=== PATIENT | female | born 1990 | race Caucasian/White ===

== ENCOUNTER 2021-01-17 05:51 | Inpatient (IN) | payer BC ==
[~2021-01-17 05:51] MED LIST: Citric Acid/Sodium Citrate Solution 30 ML Cup PO ONE; Gentamicin 400 MG in Sodium Chloride 0.9% 100 ML IV ONE; Sodium Chloride 0.9% 10 ML Syringe FLUSH PRN; Tranexamic Acid 1,000 MG in Sodium Chloride 0.9% 100 ML IV PRN
[2021-01-17] MEDS ORDERED: Lactated Ringers 1,000 ML IV SCH (06:00)
[2021-01-17] MEDS ORDERED: Oxytocin/Normal Saline 30 UNIT/500 ML BAG IV SCH (06:00)
[2021-01-17] MEDS ORDERED: Oxytocin/Normal Saline 60 UNIT/1,000 ML BAG ONE (06:28)
[2021-01-17] MEDS: Lactated Ringers 1,000 ML IV SCH ×4 (06:30→16:09)
[2021-01-17] MEDS ORDERED: Gentamicin 40 MG/ML 2 ML Vial ONE ×2 (07:04→07:29)
[2021-01-17] MEDS ORDERED: Sodium Chloride 0.9% 100 ML ONE (07:29)
[2021-01-17] MEDS ORDERED: Ondansetron 4 MG/2 ML SDV IVPUSH PRN (07:38)
[2021-01-17] MEDS ORDERED: Methylergonovine 0.2 MG/1 ML Amp IM PRN (07:38)
[2021-01-17] MEDS ORDERED: Tranexamic Acid 1,000 MG in Sodium Chloride 0.9% 100 ML IV PRN (07:38)
[2021-01-17] MEDS ORDERED: Acetaminophen 325 MG Tab PO PRN (07:38)
[2021-01-17] MEDS ORDERED: diphenhydrAMINE 50 MG/ML SDV IVPUSH PRN (07:38)
[2021-01-17] MEDS ORDERED: Misoprostol 400 MCG (4 X 100 MCG TAB) RECTAL PRN (07:38)
[2021-01-17] MEDS ORDERED: Acetaminophen/oxyCODONE 325-5 MG Tab PO PRN ×2 (07:38)
[2021-01-17] MEDS ORDERED: Carboprost Tromethamine 250 MCG/1 ML Amp IM PRN (07:38)
[2021-01-17] MEDS ORDERED: Naloxone 2 MG/2 ML Syringe IVPUSH PRN (07:38)
[2021-01-17] MEDS ORDERED: ePHEDrine 50 MG/ML SDV IVPUSH PRN (07:38)
[2021-01-17] MEDS ORDERED: Ketorolac 30 MG/ML SDV IVPUSH SCH (08:00)
[2021-01-17] MEDS ORDERED: Gentamicin 400 MG in Sodium Chloride 0.9% 100 ML IV ONE (08:30)
[2021-01-17] MEDS: Simethicone 80 MG Tab.Chew PO SCH ×4 (09:52→20:35)
[2021-01-17] MEDS: Prenatal Multivitamin with Calcium/Folic Acid/Iron Tab PO SCH (09:52)
--- NOTE | 2021-01-17 10:10 | OR ---
DATE: 01/17/2021 PROCEDURE PERFORMED: Repeat low transverse section. INDICATION FOR PROCEDURE: Elective repeat section at term due to history of 2 prior sections and history of pelvic floor trauma. SURGEON: Bertha Blackburn MD MACHINE DRILLER: Drew Darling MD ANESTHESIA: Spinal. CONSENT: Discussed with the patient indications, risks, benefits, and alternatives of repeat low transverse section including risk of bleeding to the point of requiring a blood transfusion and its inherent risk, risk of injury to any internal organs and adjacent structures including, but not limited to, large blood vessels, nerves, veins, uterus, intestines, fallopian tubes, ovaries, bladder, and even the baby, potential for complications for mother and/or baby that would require transfer to a tertiary center for definitive care. Her questions were answered and appropriate consent forms are signed and in the chart. PREPROCEDURE DIAGNOSES: 1. 39-1/7 weeks' intrauterine based on 12-week ultrasound. 2. 4, para 2-0-1-2. 3. History of section x2. 4. History of pelvic floor trauma. 5. Posttraumatic stress disorder. 6. History of spontaneous x1. 7. Anemia of . 8. Blood type A negative, rubella immune, group B Streptococcus negative. 9. Penicillin allergy. Planned prophylaxis was gentamicin. POSTPROCEDURE DIAGNOSES: 1. 39-1/7 weeks' intrauterine based on 12-week ultrasound. 2. 4, now para 3-0-1-3. 3. History of section x2. 4. History of pelvic floor trauma. 5. Posttraumatic stress disorder. 6. History of spontaneous x1. 7. Anemia of . 8. Blood type A negative, rubella immune, group B Streptococcus negative. 9. Penicillin allergy. Planned prophylaxis was gentamicin. 10.Status post repeat low transverse section without complications. DETAILS: The patient brought to the operating room and spinal anesthesia obtained. Bello indwelling catheter placed with the patient in dorsal supine position with leftward tilt. Abdomen prepped in usual fashion and sterile drapes applied. The patient's skin was tested and skin incision was made at 8:02 and carried down to the underlying fascia using cautery and finger dissection. Fascia incised in the midline with cautery and extended bilaterally with cautery and finger dissection. Superior fascial edge grasped with Keely's, tented up, and rectus muscles dissected off with cautery. Inferior fascial edge treated in similar fashion. Rectus muscles in the midline with blunt finger dissection, and peritoneal cavity entered by finger dissection. Carter retractor was then placed, and uterine incision made at 8:05 a.m. with scalpel and extended using Mena method. Baby was noted to be OP position, delivered at 8:05 a.m. Nose and mouth were bulb suctioned. Three- vessel umbilical cord was doubly clamped and cut. Baby taken to the warmer for further evaluation. Placenta was delivered by gentle cord traction and concomitant uterine massage. Uterus cleared of all clots and debris with dry lap sponge, and hysterotomy site closed with a running lock stitch of 0 Vicryl in the usual fashion. There was a small amount of bleeding noted, and a second imbricating layer was placed. Uterine segment was noted to be quite thin, so I am hoping that this second layer would also cordwood cutter helper in safe future pregnancies. Otherwise, I would recommend delivery at 38 weeks to 39 weeks. Carter was then removed, and pericolic gutters cleared of all clots and debris. Hysterotomy site reinspected and remained hemostatic. Rectus muscles brought together in the midline with a single loose [id number] suture. This layer was irrigated and fascia closed with a running stitch of 0 looped PDS in the usual fashion. Subcutaneous tissues irrigated and cleared of any debris. Skin was closed with a subcuticular stitch of 4-0 Monocryl and procedure ended at 8:30 a.m. COMPLICATIONS: None. ESTIMATED BLOOD LOSS: 100 mL. IV FLUIDS: 1. 1500 mL of crystalloid,300 mL with Pitocin. 2. Urine output 350 mL of clear yellow. DISPOSITION: Baby to go to the normal nursery. Mother to stay in the postanesthesia care unit until stabilized to return to the floor. FINDINGS: Viable female , weight 3450 g, 7 pounds 10 ounces, score of 7 and 9. Thin lower uterine segment, not a window. [facility] [facility] /[id number] [facility]ITAL[facility]
[2021-01-17] MEDS ORDERED: Oxytocin/Normal Saline 30 UNIT/500 ML BAG IV ONE (10:25)
[2021-01-17] MEDS ORDERED: Morphine PF 1 MG/ML Amp ONE (11:22)
[2021-01-17] MEDS ORDERED: Lactated Ringers 1,000 ML IV ONE (11:22)
[2021-01-17] MEDS ORDERED: Dexamethasone 4 MG/ML SDV IV ONE (11:22)
[2021-01-17] MEDS ORDERED: Sodium Bicarbonate 4.2% 2.5 MEQ/5 ML SDV ONE (11:22)
[2021-01-17] MEDS ORDERED: Ondansetron 4 MG/2 ML SDV IV ONE (11:22)
[2021-01-17] MEDS ORDERED: Ketorolac 30 MG/ML SDV IVPUSH ONE (11:22)
[2021-01-17] MEDS: Ketorolac 30 MG/ML SDV IVPUSH SCH ×2 (14:57→20:34)
[2021-01-17] MEDS: Docusate Sodium 100 MG Cap PO PRN (20:35)
[2021-01-18] MEDS: Ketorolac 30 MG/ML SDV IVPUSH SCH (02:28)
[2021-01-18] MEDS: Prenatal Multivitamin with Calcium/Folic Acid/Iron Tab PO SCH (08:15)
[2021-01-18] MEDS: Simethicone 80 MG Tab.Chew PO SCH ×4 (08:15→21:29)
[2021-01-18] MEDS: Docusate Sodium 100 MG Cap PO PRN ×2 (08:16→21:29)
--- NOTE | 2021-01-18 10:20 | PN ---
DATE: 01/18/2021 SUBJECTIVE: Postoperative day #1 elective repeat section without complications. The patient is doing well. She has ambulated. She has her Bello catheter out. Passing flatus. No bowel movement as of yet. She is tolerating a regular diet. No chest pain. No shortness of breath. Lochia has been minimal and overall doing well. Baby's blood type is O positive and her RhoGAM has been ordered and she knows she needs to get that, still anticipating discharge home tomorrow as long as everything is going well. OBJECTIVE: Vital Signs: Temperature is 97.4, pulse 72, blood pressure 99/56, respiratory rate of 16. Heart: Regular without murmur. Lungs: Clear to auscultation bilaterally. Abdomen: Mildly distended. Positive bowel sounds. No tenderness. Dressing is clean, dry, and intact. Extremities: No edema, erythema, or tenderness. LABORATORY DATA: Hemoglobin 12.0, down to 9.5, platelets 304, down to 285. ASSESSMENT: 1. Postoperative day 1, status post elective repeat section. 2. Anemia of . 3. Blood type A negative, baby is O positive, and RhoGAM has been ordered. 4. 4, now para 3-0-1-3. 5. History of pelvic floor trauma. 6. Posttraumatic stress disorder. 7. History of miscarriage x1. PLAN: Continue routine postoperative and postdelivery cares. Anticipating discharge home tomorrow as long as everything goes well. Discussed with her that she has had some mild anemia, worse after surgery, but also anticipate a lot of this is hemodilution related. The patient's questions have been answered. [facility] /[id number]
[2021-01-18] MEDS: Ibuprofen 800 MG Tab PO PRN (16:08)
[2021-01-19] MEDS: Ibuprofen 800 MG Tab PO PRN ×3 (00:07→17:51)
[2021-01-19] MEDS: Prenatal Multivitamin with Calcium/Folic Acid/Iron Tab PO SCH (08:55)
[2021-01-19] MEDS: Simethicone 80 MG Tab.Chew PO SCH ×3 (08:55→17:52)
[2021-01-19] MEDS: Docusate Sodium 100 MG Cap PO PRN (08:55)
[2021-01-19 17:21] VITALS: BP 116/64; PULSE 64
--- NOTE | 2021-01-22 06:49 | DISCH ---
ADMITTING DIAGNOSES: 1. 39 and 1/7 weeks intrauterine based on 12 weeks ultrasound. 2. 4, para 2-0-1-2. 3. History of x2. 4. History of pelvic trauma. 5. Post-traumatic stress disorder. 6. Blood type A negative, rubella immune, group B Strep negative. 7. History of spontaneous x1. 8. Anemia of . DISCHARGE DIAGNOSES: 1. 39 and 1/7 weeks intrauterine based on 12 weeks ultrasound. 2. 4, now para 3-0-1-3. 3. History of x2. 4. History of pelvic trauma. 5. Post-traumatic stress disorder. 6. Blood type A negative, rubella immune, group B Strep negative. 7. History of spontaneous x1. 8. Anemia of . 9. Thin lower uterine segment. 10.Status post repeat low transverse section without complications. 11.RhoGAM administration on 01/18/2021. BRIEF HISTORY: A 30-year-old female with the above-listed diagnoses, presented to the hospital for planned elective section at term. Please see admission history and physical for details. Surgical procedure was carried out without incident and there was actually only estimated blood loss of around 100 mL, and there were no complications with the surgery itself. She was noted to have a thinning of lower uterine segment, but not uterine window, and I have advised her that next delivery should be between 38 and 39 weeks rather than waiting until the full 39, but the delivery would not be indicated. HOSPITAL COURSE: Good. The patient has been ambulating, tolerating regular diet. No chest pain. No shortness of breath. Voiding without difficulties. Passing flatus. She has not yet had a bowel movement. her baby and that seems to be going well and her milk is now in. Bleeding has been well controlled. She has no other acute concerns or complaints. LABORATORY DATA: Admission hemoglobin 12.0, discharge 9.5; admission platelets 304, discharge 285. DISCHARGE CONDITION: Good. PHYSICAL EXAMINATION: Vital Signs: Temperature is 97.5, pulse 64, blood pressure 116/64, respiratory rate of 16. Heart: Regular without murmur. Lungs: Clear to auscultation bilaterally. Abdomen: Soft, nontender. Fundus is firm and below the umbilicus. Surgical incision is clean, dry, and intact with Steri-Strips in place. Extremities: Full range of motion. Trace edema. No erythema or tenderness noted. DISPOSITION: Home with family. MEDICATIONS: 1. Percocet 5/325 1 to 2 tablets every 4 to 6 hours as needed for pain, dispensed 10, no refills. 2. Ibuprofen 800 mg every 8 hours as needed for pain. 3. Colace 100 mg twice daily as needed for constipation. 4. Iron 325 mg twice daily. 5. vitamins 1 tablet p.o. daily. FOLLOWUP: She will be seen in the office in 2 weeks for a postoperative incision check, sooner if any concerns or questions. INSTRUCTIONS: Routine post section delivery instructions were provided and the patient is verbalizing understanding of all of her instructions. [facility] /[id number]
== END 2021-01-19 19:19 | disposition home or self-care (01) | DRG 540 ==
LOC: DL.OB 05:51 → OBSVTOIN 08:05 → DL.OB 08:05
PROVIDERS: ADMIT Family Medicine; ATTEND Family Medicine
PROC: 10D00Z1 Extraction of Products of Conception, Low, Open Approach (ICD-10-PCS; principal; 2021-01-17)
DX: O34.211 Maternal care for low transverse scar from previous cesarean delivery (principal); Z3A.38 38 weeks gestation of pregnancy; Z37.0 Single live birth; Z88.1 Allergy status to other antibiotic agents; Z88.0 Allergy status to penicillin; O99.02 Anemia complicating childbirth; D64.9 Anemia, unspecified
CPT/HCPCS: 01967; 36415; 59025; 85025; 85027; 85461; 86850; 86900; 86901; A9270-GY; J1100; J1580; J1885; J2274; J2405; J2590; J2790; J7120; U0002